=== PATIENT | male | born 1960 | race Caucasian/White ===

== ENCOUNTER 2021-03-11 09:45 | Outpatient (REF) | payer OTHER, SELFPAY ==
--- NOTE | ~2021-03-11 | XR_ITS ---
EXAMINATION: XR HAND, RIGHT CLINICAL INFORMATION: Pain in the right hand. COMPARISON: None TECHNIQUE: PA, lateral, and oblique views of the right hand. FINDINGS: No evidence of acute fractures or malalignment. The scapholunate interval and carpal rows are maintained. No significant degenerative changes nor erosions. Normal appearance of the soft tissues. XR/XR hand RT min 3V IMPRESSION: Normal right hand.
== END 2021-03-11 09:46 | disposition home or self-care (01) ==
LOC: HO.HOSX 09:45
PROVIDERS: Visit Provider Orthopaedic Surgery
DX: M79.641 Pain in right hand (principal); M25.641 Stiffness of right hand, not elsewhere classified
CPT/HCPCS: 73130